=== PATIENT | female | born 1990 | race American Indian/Alaskan Native ===

== ENCOUNTER 2021-01-15 01:41 | Emergency (ER) | payer SELFPAY ==
[2021-01-15 01:54] VITALS: BP 110/52
--- NOTE | 2021-01-15 02:14 | Emergency Department Report ---
ED Female HPI - General Chief complaint: Abdominal Pain Stated complaint: ABDOMINAL PAIN Time Seen by Provider: 01/15/21 02:05 Source: patient Mode of arrival: Ambulatory Limitations: No Limitations - History of Present Illness Initial comments: Patient is a 30-year-old female presents emergency room complaints of lower abdominal discomfort that began 4 days ago. She states that she also has lower back discomfort and urinary frequency. She states that she has noticed some increase of her normal vaginal discharge. She states that she is concerned for STDs. She denies any fever, nausea, vomiting, diarrhea, dysuria, vaginal bleeding. No past medical history. No allergies to medications. - Related Data Previous Rx's Medication Instructions Recorded Last Taken Type Doxycycline Hyclate [Doxycycline 100 mg PO BID 7 Days #14 tab 01/15/21 Unknown Rx Hyclate TAB] Fluconazole [Diflucan TAB] 150 mg PO QDAY 1 Days #3 tablet 01/15/21 Unknown Rx Allergies Allergy/AdvReac Type Severity Reaction Status Date / Time No Known Allergies Allergy Unverified 01/15/21 01:57 ED Review of Systems ROS: Stated complaint: ABDOMINAL PAIN Other details as noted in HPI Comment: All other systems reviewed and negative ED Past Medical Hx - Past Medical History Previous Medical History?: Yes Additional medical history: PRE-ECLAMPSIA - Surgical History Past Surgical History?: Yes Hx Appendectomy: Yes Additional Surgical History: - Social History Smoking Status: Current Every Day Smoker Substance Use Type: Marijuana - Medications Home Medications: Home Medications Medication Instructions Recorded Confirmed Last Taken Type Doxycycline Hyclate [Doxycycline 100 mg PO BID 7 Days #14 tab 01/15/21 Unknown Rx Hyclate TAB] Fluconazole [Diflucan TAB] 150 mg PO QDAY 1 Days #3 tablet 01/15/21 Unknown Rx ED Physical Exam - General Limitations: No Limitations General appearance: alert, in no apparent distress - Head Head exam: Present: atraumatic, normocephalic - Eye Eye exam: Present: normal appearance - ENT ENT exam: Present: mucous membranes moist - Respiratory Respiratory exam: Present: normal lung sounds bilaterally. Absent: respiratory distress, wheezes, rales, rhonchi, stridor, chest wall tenderness, accessory muscle use, decreased breath sounds, prolonged expiratory - Cardiovascular Cardiovascular Exam: Present: regular rate, normal rhythm, normal heart sounds. Absent: systolic murmur, diastolic murmur, rubs, gallop - GI/Abdominal GI/Abdominal exam: Present: soft, tenderness (mild suprapubic ), normal bowel sounds. Absent: distended, guarding, rebound, rigid - Neurological Exam Neurological exam: Present: alert, oriented X3 - Psychiatric Psychiatric exam: Present: normal affect, normal mood - Skin Skin exam: Present: warm, dry, intact ED Course Vital Signs 01/15/21 01:47 Temperature 98.3 F Pulse Rate 82 Respiratory 18 Rate Blood Pressure 110/52 O2 Sat by Pulse 100 Oximetry ED Medical Decision Making - Medical Decision Making Patient is a 30-year-old female presents emergency room complaints of lower abdominal discomfort that began 4 days ago. She states that she also has lower back discomfort and urinary frequency. She states that she has noticed some increase of her normal vaginal discharge. She states that she is concerned for STDs. She denies any fever, nausea, vomiting, diarrhea, dysuria, vaginal bleeding. No past medical history. No allergies to medications. Vitals are normal. On exam patient has mild suprapubic tenderness palpation, no guarding, no rebound, no rigidity, no masses, no peritoneal signs. UA shows 2+ bacteria, trace leukocyte esterase, yeast. Urine is negative. Given that patient is concerned for STDs, given ceftriaxone IM which will cover for gonorrhea and UTI, also given Flagyl 2 g to cover for trichomonas while in the ED. Patient given prescription for doxycycline and fluconazole. Advised patient Please take medication as prescribed. Follow-up with the clinic with all department or to have a full STD panel. Please have any partner tested and treated as well. Avoid sexual intercourse. Return to emergency room for any new or symptoms. Critical care attestation.: If time is entered above; I have spent that time in minutes in the direct care of this critically ill patient, excluding procedure time. ED Disposition Clinical Impression: Yeast vaginitis, Concern about STD in female without diagnosis UTI (urinary tract infection) Qualifiers: Urinary tract infection type: acute cystitis Hematuria presence: with hematuria Qualified Code(s): N30.01 - Acute cystitis with hematuria Disposition: HOME / SELF CARE / HOMELESS Is pt being admited?: No Does the pt Need Aspirin: No Condition: Stable Instructions: Vaginal Yeast Infection, Adult, Urinary Tract Infection, Adult, Safe Sex, Abdominal Pain (ED) Additional Instructions: Please take medication as prescribed. Follow-up with the clinic with all department or to have a full STD panel. Please have any partner tested and treated as well. Avoid sexual intercourse. Return to emergency room for any new or symptoms. Prescriptions: Fluconazole [Diflucan TAB] 150 mg PO QDAY 1 Days #3 tablet Doxycycline Hyclate [Doxycycline Hyclate TAB] 100 mg PO BID 7 Days #14 tab Referrals: [facility] [Provider Group] - 3-5 Days [facility] [Outside] - 3-5 Days Time of Disposition: 03:16 Print Language: ARABIC
[2021-01-15 03:00] LABS: HCG Qualitative,Urine Negative (Negative)
[2021-01-15 03:04] LABS: Bacteria,Urine 2+ /HPF (Negative); Bilirubin,Urine NEG (Negative); Blood,Urine NEG (Negative); Calcium Oxalate Crystals,Urine 3+; Color,Urine Yellow (Yellow); Mucus,Urine 3+ /HPF; Protein,Urine <15 mg/dL mg/dL (Negative); Urobilinogen,Urine < 2.0 mg/dL (<2.0)
[2021-01-15] MEDS ORDERED: LIDOCAINE-MPF (1%) 10 MG/1 ML VIAL 5 ML INFILTRATI ONE (03:14)
[2021-01-15] MEDS ORDERED: metroNIDAZOLE 500 MG TAB PO ONE (03:15)
== END 2021-01-15 03:48 | disposition home or self-care (01) ==
LOC: ED 01:41
DX: B37.3 Candidiasis of vulva and vagina (principal); Z20.2 Contact with and (suspected) exposure to infections with a predominantly sexual mode of transmission; N30.01 Acute cystitis with hematuria; F17.200 Nicotine dependence, unspecified, uncomplicated; F12.90 Cannabis use, unspecified, uncomplicated; Z90.89 Acquired absence of other organs
CPT/HCPCS: 81001; 81025; 87086; 96372; 99283; J0696; J3490